=== PATIENT | male | born 1955 | race Caucasian/White ===

== ENCOUNTER 2024-11-30 23:19 | Inpatient (IN) | payer OTHER ==
[2024-11-30 23:55] LABS: Hematocrit 20.0 % (38.8-50.0); Hemoglobin 5.7 g/dL (13.5-17.5); Mean Corpuscular Hemoglobin 18.2 pg (27.0-33.0); Mean Corpuscular Volume 63.7 fL (81.2-95.1); Platelet Count 266 10x3/uL (150-450); Red Blood Cell (RBC) Count 3.14 10x6/uL (4.32-5.72); White Blood Cell (WBC) Count 6.08 10x3/uL (3.5-10.5)
[2024-11-30 23:57] LABS: #Basophils 0.05 10x3/uL (0.0-0.2); #Eosinophils 0.17 10x3/uL (0.0-0.5); #Monocytes 1.03 10x3/uL (0.0-1.1); #Neutrophils 3.10 10x3/uL (1.5-8.4); %Basophils 0.8 % (0.0-2.0); %Eosinophils 2.8 % (0.0-6.0); %Lymphocytes 28.3 % (18.0-47.0); %Monocytes 16.9 % (0.0-10.0); %Neutrophils 51.0 % (40.0-75.0)
[2024-12-01 00:08] LABS: ALT (SGPT) 17 U/L (Less than 45); AST (SGOT) 28 U/L (11-34); Albumin 4.0 g/dL (3.1-4.5); Alkaline Phosphatase 79 U/L (40-110); Anion Gap 9 mmol/L (10-20); BUN (Urea Nitrogen) 27 mg/dL (8.4-25.7); Bilirubin, Total 0.3 mg/dL (0.3-1.2); Calc. Creatinine Clearance 0 mL/min (70-130); Calcium 8.8 mg/dL (7.8-10.44); Carbon Dioxide 27 mmol/L (23-31); Chloride 110 mmol/L (98-107); Globulin 3.4 g/dL (2.4-3.5); Glucose 92 mg/dL (83-110); Potassium 3.9 mmol/L (3.5-5.1); Sodium 142 mmol/L (136-145)
[2024-12-01 00:50] LABS: Microcytosis MODERATE=15-30 cells (100X) (0-5/hpf); Platelet Adequacy Comment Appears Adequate
[2024-12-01] MEDS ORDERED: Acetaminophen 325 MG TAB PO PRN (01:54)
[2024-12-01] MEDS ORDERED: Ondansetron PF 4 MG/2 ML Vial IVP PRN (01:54)
[2024-12-01 03:01] LABS: Iron 9 ug/dL (65-175); Iron Binding Capacity, Total 455 mcg/dL (261-462)
[2024-12-01 03:05] VITALS: BMI 21.1
[2024-12-01] MEDS: Pantoprazole 40 MG VIAL IVP SCH ×2 (03:43→21:46)
[2024-12-01 08:11] LABS: #Basophils 0.05 10x3/uL (0.0-0.2); #Eosinophils 0.22 10x3/uL (0.0-0.5); #Monocytes 1.10 10x3/uL (0.0-1.1); #Neutrophils 3.77 10x3/uL (1.5-8.4); %Basophils 0.8 % (0.0-2.0); %Eosinophils 3.3 % (0.0-6.0); %Lymphocytes 22.4 % (18.0-47.0); %Monocytes 16.6 % (0.0-10.0); %Neutrophils 56.7 % (40.0-75.0); Hematocrit 23.8 % (38.8-50.0); Hemoglobin 7.0 g/dL (13.5-17.5); Mean Corpuscular Hemoglobin 19.9 pg (27.0-33.0); Mean Corpuscular Volume 67.8 fL (81.2-95.1); Platelet Count 250 10x3/uL (150-450); Red Blood Cell (RBC) Count 3.51 10x6/uL (4.32-5.72); White Blood Cell (WBC) Count 6.64 10x3/uL (3.5-10.5)
[2024-12-01 08:35] LABS: INR-International Normal Ratio 1.0; PTT 25.4 sec (22.0-33.0); Prothrombin Time 11.1 sec (9.5-12.1)
[2024-12-01 09:12] LABS: ALT (SGPT) 17 U/L (Less than 45); AST (SGOT) 25 U/L (11-34); Albumin 3.7 g/dL (3.1-4.5); Alkaline Phosphatase 77 U/L (40-110); Anion Gap 16 mmol/L (10-20); BUN (Urea Nitrogen) 22 mg/dL (8.4-25.7); Bilirubin, Total 1.0 mg/dL (0.3-1.2); Calc. Creatinine Clearance 57 mL/min (70-130); Calcium 8.7 mg/dL (7.8-10.44); Carbon Dioxide 21 mmol/L (23-31); Chloride 109 mmol/L (98-107); Globulin 3.2 g/dL (2.4-3.5); Glucose 93 mg/dL (83-110); Potassium 3.7 mmol/L (3.5-5.1); Sodium 142 mmol/L (136-145)
[2024-12-01] MEDS: Sodium Ferric Gluconate 250 MG in Sodium Chloride 0.9% 250 ML 250 ML IVPB SCH (13:00)
[2024-12-01 14:59] LABS: #Basophils 0.06 10x3/uL (0.0-0.2); #Eosinophils 0.22 10x3/uL (0.0-0.5); #Monocytes 1.02 10x3/uL (0.0-1.1); #Neutrophils 3.64 10x3/uL (1.5-8.4); %Basophils 0.9 % (0.0-2.0); %Eosinophils 3.4 % (0.0-6.0); %Lymphocytes 22.7 % (18.0-47.0); %Monocytes 15.9 % (0.0-10.0); %Neutrophils 56.8 % (40.0-75.0); Hematocrit 26.7 % (38.8-50.0); Hemoglobin 7.9 g/dL (13.5-17.5); Mean Corpuscular Hemoglobin 20.8 pg (27.0-33.0); Mean Corpuscular Volume 70.4 fL (81.2-95.1); Platelet Count 234 10x3/uL (150-450); Red Blood Cell (RBC) Count 3.79 10x6/uL (4.32-5.72); White Blood Cell (WBC) Count 6.42 10x3/uL (3.5-10.5)
[2024-12-02 05:22] LABS: #Basophils 0.06 10x3/uL (0.0-0.2); #Eosinophils 0.30 10x3/uL (0.0-0.5); #Monocytes 1.12 10x3/uL (0.0-1.1); #Neutrophils 4.47 10x3/uL (1.5-8.4); %Basophils 0.8 % (0.0-2.0); %Eosinophils 4.1 % (0.0-6.0); %Lymphocytes 17.6 % (18.0-47.0); %Monocytes 15.4 % (0.0-10.0); %Neutrophils 61.7 % (40.0-75.0); Hematocrit 27.9 % (38.8-50.0); Hemoglobin 8.2 g/dL (13.5-17.5); Mean Corpuscular Hemoglobin 20.3 pg (27.0-33.0); Mean Corpuscular Volume 69.1 fL (81.2-95.1); Platelet Count 237 10x3/uL (150-450); Red Blood Cell (RBC) Count 4.04 10x6/uL (4.32-5.72); White Blood Cell (WBC) Count 7.26 10x3/uL (3.5-10.5)
[2024-12-02 05:31] LABS: Anion Gap 11 mmol/L (10-20); BUN (Urea Nitrogen) 16 mg/dL (8.4-25.7); Calc. Creatinine Clearance 58 mL/min (70-130); Calcium 9.0 mg/dL (7.8-10.44); Carbon Dioxide 24 mmol/L (23-31); Chloride 109 mmol/L (98-107); Glucose 80 mg/dL (83-110); Potassium 3.5 mmol/L (3.5-5.1); Sodium 140 mmol/L (136-145)
[2024-12-02 08:56] VITALS: TEMP 97.6
[2024-12-02] MEDS ORDERED: DULoxetine 30 MG CAP PO SCH (09:00)
[2024-12-02] MEDS ORDERED: Carvedilol 3.125 MG TAB PO SCH (09:00)
[2024-12-02] MEDS ORDERED: Non-Formulary Medication 1 EACH (Omeprazole [Omeprazole] 20 MG Capsule.Dr) PO SCH (09:00)
[2024-12-02] MEDS: DULoxetine 30 MG CAP PO SCH (09:28)
[2024-12-02] MEDS: Carvedilol 3.125 MG TAB PO SCH (09:28)
[2024-12-02] MEDS: Aspirin 81 mg Enteric Coated Tablet PO SCH (09:28)
[2024-12-02 12:37] VITALS: BP 146/72
[2024-12-02] MEDS ORDERED: Pantoprazole 40 MG DR.TAB PO SCH (21:00)
[2024-12-03] MEDS ORDERED: Ferrous Gluconate 324 MG TAB PO SCH (08:00)
== END 2024-12-02 19:40 | DRG 812 ==
LOC: CSHERS 23:19 → CSHTELE 12-01 01:54
PROVIDERS: ADMIT Internal Medicine; ATTEND Hospitalist
PROC: 30233N1 Transfusion of Nonautologous Red Blood Cells into Peripheral Vein, Percutaneous Approach (ICD-10-PCS; principal; 2024-12-01)
DX: D50.9 Iron deficiency anemia, unspecified (principal); I48.91 Unspecified atrial fibrillation; J44.9 Chronic obstructive pulmonary disease, unspecified; R13.12 Dysphagia, oropharyngeal phase; D53.9 Nutritional anemia, unspecified; Z87.891 Personal history of nicotine dependence; Z85.810 Personal history of malignant neoplasm of tongue; Z98.890 Other specified postprocedural states; Z79.899 Other long term (current) drug therapy; Z79.82 Long term (current) use of aspirin
CPT/HCPCS: 36415; 36430; 71045; 80048; 80053; 82274; 82728; 83010; 83540; 83550; 85025; 85046; 85060; 85610; 85730; 86850; 86900; 86901; 93005; 93010; 97139; 99285; J2470; J2916; J7050; J7120; P9016